=== PATIENT | female | born 1985 | race Caucasian/White ===

== ENCOUNTER 2016-09-02 13:55 | Emergency (ER) | payer OTHER ==
[2016-09-02 14:10] VITALS: BP 137/93
--- NOTE | 2016-09-02 14:11 | ER Document Report ---
ED Medical Screen (RME) - General Stated Complaint: ABDOMINAL PAIN Notes: 31 yo female c/o LLq pain since this AM. constant. + hx/o ovarian cyst. feels familar. hasnt had pain x 10 yrs. no n/v, no fever, no urinary or vaginal symptoms. pain localized, nonradiating. s/p partial hyst TRAVEL OUTSIDE OF THE [place] IN LAST 30 DAYS: No - Related Data Allergies/Adverse Reactions: Penicillins Allergy (Verified 09/02/16 14:07) Urticaria Past Medical History Past Surgical History: Reports: Hx Abdominal Surgery - tummy tuck, Hx Tonsillectomy
[2016-09-02 14:46] LABS: ABSOLUTE EOSINOPHILS # (AUTO) 0.1 10^3/uL (0.0-0.6); ABSOLUTE MONOCYTES (AUTO) 0.4 10^3/uL (0.1-1.4); ABSOLUTE NEUT (AUTO) 4.7 10^3/uL (1.7-8.2); BASOPHILS % (AUTO) 0.7 % (0-2); EOSINOPHILS % (AUTO) 1.7 % (0-6); HEMATOCRIT 40.9 % (36.0-47.0); HEMOGLOBIN 14.1 g/dL (12.0-15.5); HGB HCT DIFFERENCE 1.4; LYMPHOCYTES % (AUTO) 27.5 % (13-45); MEAN CORPUSCULAR HEMOGLOBIN 29.9 pg (27.0-33.4); MEAN CORPUSCULAR HGB CONC 34.5 g/dL (32.0-36.0); MEAN CORPUSCULAR VOLUME 87 fl (80-97); MONOCYTES % (AUTO) 5.5 % (3-13); RED BLOOD COUNT 4.72 10^6/uL (3.72-5.28); RED CELL DISTRIBUTION WIDTH 13.5 % (11.5-14.0); SEGMENTED NEUTROPHILS % (AUTO) 64.6 % (42-78); WHITE BLOOD COUNT 7.3 10^3/uL (4.0-10.5)
[2016-09-02 15:04] LABS: ALANINE AMINOTRANSFERASE 40 U/L (9-52); ALKALINE PHOSPHATASE 53 U/L (38-126); ANION GAP 14 (5-19); ASPARTATE AMINO TRANSFERASE 23 U/L (14-36); BILIRUBIN,TOTAL 0.6 mg/dL (0.2-1.3); BLOOD UREA NITROGEN 10 mg/dL (7-20); CALCIUM 9.4 mg/dL (8.4-10.2); CARBON DIOXIDE 28 mmol/L (22-30); CHLORIDE 102 mmol/L (98-107); CREATININE RESULT 0.69 mg/dL (0.52-1.25); GLUCOSE 88 mg/dL (75-110); POTASSIUM 4.1 mmol/L (3.6-5.0); SODIUM 144.3 mmol/L (137-145); TOTAL PROTEIN 7.5 g/dL (6.3-8.2)
[2016-09-02 15:38] LABS: APPEARANCE,URINE TURBID; BILIRUBIN,URINE NEGATIVE (NEGATIVE); GLUCOSE, URINE NEGATIVE (NEGATIVE); KETONES,URINE NEGATIVE (NEGATIVE); LEUKOCYTE ESTERASE,URINE NEGATIVE (NEGATIVE); NITRITE,URINE NEGATIVE (NEGATIVE); PROTEIN,URINE 30 mg/dL (NEGATIVE); URINE SPECIFIC GRAVITY 1.025; UROBILINOGEN,URINE NEGATIVE mg/dL (<2.0)
[2016-09-02] MEDS ORDERED: IBUPROFEN 600 MG TABLET PO ONE (16:15)
--- NOTE | 2016-09-02 16:21 | ER Document Report ---
ED GI/ - General Chief Complaint: Abdominal Pain Stated Complaint: ABDOMINAL PAIN Notes: The patient is a 31-year-old female, past medical history partial hysterectomy, ovarian cyst when she was a teenager, presents with 1 day of left lower quadrant abdominal/groin pain and pelvic pain. She feels like this is similar to her prior episodes of ovarian cysts. She is not taking anything to help. Pain is worse when she flexes her hip muscle. She denies vaginal discharge, hematuria, dysuria, flank pain, constipation, diarrhea or rash. TRAVEL OUTSIDE OF THE [place] IN LAST 30 DAYS: No - Related Data Allergies/Adverse Reactions: Penicillins Allergy (Verified 09/02/16 14:07) Urticaria Past Medical History - General Information source: Patient - Social History Smoking Status: Never Smoker Chew tobacco use (# tins/day): No Frequency of alcohol use: Social Drug Abuse: None Family History: Reviewed & Not Pertinent Patient has suicidal ideation: No Patient has homicidal ideation: No Past Surgical History: Reports: Hx Abdominal Surgery - tummy tuck, Hx Hysterectomy, Hx Tonsillectomy - Immunizations Hx Diphtheria, Pertussis, Tetanus Vaccination: No Review of Systems - Review of Systems Notes: REVIEW OF SYSTEMS: CONSTITUTIONAL: -fevers, -chills EENT: -eye pain, -difficulty swallowing, -nasal congestion CARDIOVASCULAR:-chest pain, -syncope. RESPIRATORY: -cough, -SOB GASTROINTESTINAL: +abdominal pain, - nausea, -vomiting, -diarrhea GENITOURINARY: -dysuria, -hematuria MUSCULOSKELETAL: -back pain, -neck pain, +left groin pain SKIN: -rash or skin lesions. HEMATOLOGIC: -easy bruising or bleeding. LYMPHATIC: -swollen, enlarged glands. NEUROLOGICAL: -altered mental status or loss of consciousness, -headache, - neurologic symptoms PSYCHIATRIC: -anxiety, -depression. ALL OTHER SYSTEMS REVIEWED AND NEGATIVE. Physical Exam - Vital signs Vitals: Temp Pulse Resp BP Pulse Ox 98.3 F 105 H 18 137/93 H 99 09/02/16 14:10 09/02/16 14:10 09/02/16 14:10 09/02/16 14:10 09/02/16 14:10 - Notes Notes: PHYSICAL EXAMINATION: GENERAL: Well-appearing, well-nourished and in no acute distress. HEAD: Atraumatic, normocephalic. EYES: Pupils equal round and reactive to light, extraocular movements intact, sclera anicteric, conjunctiva are normal. ENT: nares patent, oropharynx clear without exudates. Moist mucous membranes. NECK: Normal range of motion, supple without lymphadenopathy LUNGS: Breath sounds clear to auscultation bilaterally and equal. No wheezes rales or rhonchi. HEART: Regular rate and rhythm without murmurs ABDOMEN: LLQ abdominal pain. Soft, normoactive bowel sounds. No guarding, no rebound. No masses appreciated. : Nontender adnexa. No suprapubic tenderness. EXTREMITIES: Normal range of motion, no pitting or edema. No cyanosis. Painful hip flexion and mild tenderness over left hip flexors. NEUROLOGICAL: Cranial nerves grossly intact. Normal speech, normal gait. Normal sensory, motor, and reflex exams. PSYCH: Normal mood, normal affect. SKIN: Warm, Dry, normal turgor, no rashes or lesions noted. Course - Re-evaluation Re-evalutation: Patient's ultrasound is negative for ovarian torsion or ovarian cyst. Patient' s pain has improved after medications. Repeat abdominal exam is nontender. Suspect patient's pain may be related to left hip flexor muscle strain, especially when pain is worse with hip flexion. Instructed her about symptomatically treatment and following up with her primary care physician. - Vital Signs Vital signs: Temp Pulse Resp BP Pulse Ox 98.3 F 105 H 18 137/93 H 99 09/02/16 14:10 09/02/16 14:10 09/02/16 14:10 09/02/16 14:10 09/02/16 14:10 - Laboratory Result Diagrams: 09/02/16 14:30 09/02/16 14:30 Laboratory results interpreted by me: 09/02/16 14:30 Urine Protein 30 H Urine Ascorbic Acid 40 H - Diagnostic Test Radiology reviewed: Reports reviewed Radiology results interpreted by me: Pelvic ultrasound negative for any acute pathology. No ovarian cyst or torsion evidence. Discharge - Discharge Clinical Impression: Left lower quadrant abdominal pain of unknown etiology Inguinal strain Qualifiers: Encounter type: initial encounter Laterality: left Qualified Code(s): S76.212A - Strain of adductor muscle, fascia and tendon of left thigh, initial encounter Disposition: HOME, SELF-CARE Additional Instructions: Muscle Strain You have strained a muscle -- torn the fibers within the muscle. This often occurs with strenuous exertion, or during an injury that suddenly stretches the muscle. The seriousness of a strain varies. Some strains heal within days, others cause problems for months. X-rays cannot show a muscle strain. X-rays are taken only if symptoms suggest that a fracture could be present. The usual treatment of a muscle strain is rest and ice packs. Sometimes, a sling, splint, or crutches may be necessary to rest the muscle. The muscle can be used again once pain subsides. Severe strains require a special exercise and stretching program to prevent permanent stiffness and disability. Your doctor will advise you if this will be necessary. Call the doctor immediately if pain or swelling becomes severe, or if numbness or discoloration develop.
== END 2016-09-02 17:56 | disposition home or self-care (01) ==
LOC: ER 13:55
DX: S76.212A Strain of adductor muscle, fascia and tendon of left thigh, initial encounter (principal); X58.XXXA Exposure to other specified factors, initial encounter; R10.32 Left lower quadrant pain; R10.2 Pelvic and perineal pain; Z90.711 Acquired absence of uterus with remaining cervical stump; Z87.42 Personal history of other diseases of the female genital tract; Z88.0 Allergy status to penicillin
CPT/HCPCS: 36415; 76856; 80053; 81001; 81025; 85025; 93976; 99284

== ENCOUNTER 2016-10-21 17:28 | Emergency (ER) | payer OTHER ==
--- NOTE | 2016-10-21 17:58 | ER Document Report ---
ED Medical Screen (RME) - General Stated Complaint: COUGH, DIFFICULTY BREATHING Time seen by provider: 17:56 Mode of Arrival: Ambulatory Information source: Patient Notes: 31-year-old female presents to ED for cough and stuffy nose discomfort with sharp with breathing and coughing denies fevers. She had a hysterectomy in December 2015 I have greeted and performed a rapid initial assessment of this patient. A comprehensive ED assessment and evaluation of the patient, analysis of test results and completion of medical decision making process will be conducted by an additional ED providers. TRAVEL OUTSIDE OF THE [place] IN LAST 30 DAYS: No - Related Data Allergies/Adverse Reactions: Penicillins Allergy (Verified 09/02/16 14:07) Urticaria Past Medical History Past Surgical History: Reports: Hx Abdominal Surgery - tummy tuck, Hx Hysterectomy, Hx Tonsillectomy - Immunizations Hx Diphtheria, Pertussis, Tetanus Vaccination: No Physical Exam - Vital signs Vitals: Temp Pulse Resp BP Pulse Ox 99.7 F 93 20 136/85 H 100 10/21/16 17:54 10/21/16 17:54 10/21/16 17:54 10/21/16 17:54 10/21/16 17:54 Course - Vital Signs Vital signs: Temp Pulse Resp BP Pulse Ox 99.7 F 93 20 136/85 H 100 10/21/16 17:54 10/21/16 17:54 10/21/16 17:54 10/21/16 17:54 10/21/16 17:54
--- NOTE | 2016-10-21 18:48 | ER Document Report ---
ED Respiratory Problem - General Chief Complaint: Cold Symptoms Stated Complaint: COUGH, DIFFICULTY BREATHING Time seen by provider: 18:46 Mode of Arrival: Ambulatory TRAVEL OUTSIDE OF THE [place] IN LAST 30 DAYS: No - HPI Patient complains to provider of: Cough - pt with 2-3 day h/o cough productive of green sputum with low graade fever. - Related Data Allergies/Adverse Reactions: Penicillins Allergy (Verified 10/21/16 17:56) Urticaria Past Medical History - General Information source: Patient - Social History Smoking Status: Never Smoker Chew tobacco use (# tins/day): No Frequency of alcohol use: Occasional Drug Abuse: Marijuana Family History: Reviewed & Not Pertinent Patient has suicidal ideation: No Patient has homicidal ideation: No Renal/ Medical History: Denies: Hx Peritoneal Dialysis Past Surgical History: Reports: Hx Abdominal Surgery - tummy tuck, Hx Hysterectomy, Hx Tonsillectomy - Immunizations Hx Diphtheria, Pertussis, Tetanus Vaccination: No Review of Systems - Review of Systems Constitutional: See HPI, Fever EENT: No symptoms reported Cardiovascular: No symptoms reported Respiratory: See HPI, Cough Gastrointestinal: No symptoms reported Musculoskeletal: No symptoms reported -: Yes All other systems reviewed and negative Physical Exam - Vital signs Vitals: Temp Pulse Resp BP Pulse Ox 99.7 F 93 20 136/85 H 100 10/21/16 17:54 10/21/16 17:54 10/21/16 17:54 10/21/16 17:54 10/21/16 17:54 - General General appearance: Appears well In distress: None - HEENT Tympanic membrane: Normal Mucous membranes: Normal Pharynx: Normal Neck: Normal - Respiratory Respiratory status: No respiratory distress Chest status: Nontender Breath sounds: Normal Chest palpation: Normal - Cardiovascular Rhythm: Regular Heart sounds: Normal auscultation - Abdominal Inspection: Normal Distension: No distension Bowel sounds: Normal Tenderness: Nontender Course - Vital Signs Vital signs: Temp Pulse Resp BP Pulse Ox 99 F 88 16 128/74 H 100 10/21/16 19:05 10/21/16 19:05 10/21/16 19:05 10/21/16 19:05 10/21/16 19:05 Discharge - Discharge Clinical Impression: Bronchitis Condition: Stable Disposition: HOME, SELF-CARE Additional Instructions: rest, take meds as prescribed, return if worse Prescriptions: Azithromycin [Zithromax Tri-Mk] 500 mg PO DAILY #1 pkg Referrals: DONTRELL ANTHONY MD [ACTIVE STAFF] - Follow up as needed
[2016-10-21 19:33] VITALS: BP 128/74
== END 2016-10-21 19:15 | disposition home or self-care (01) ==
LOC: ER 17:28
DX: J40 Bronchitis, not specified as acute or chronic (principal); R05 Cough; R50.9 Fever, unspecified; Z88.0 Allergy status to penicillin
CPT/HCPCS: 71020; 99283

== ENCOUNTER → 2016-11-29 | Outpatient (CLI) | payer OTHER | LOC: RAD 10:56 | PROVIDERS: ATTEND Family Medicine | DX: E01.0 Iodine-deficiency related diffuse (endemic) goiter (principal) | CPT/HCPCS: 76536 ==

== ENCOUNTER → 2017-03-08 | Outpatient (CLI) | payer OTHER | LOC: OD 12:57 | PROVIDERS: ATTEND Nurse Practitioner Acute Care | DX: R30.0 Dysuria (principal) | CPT/HCPCS: 87086 ==

== ENCOUNTER 2020-06-24 09:58 | Emergency (ER) | payer OTHER ==
[2020-06-24 10:07] VITALS: BP 138/96
[2020-06-24] MEDS ORDERED: METHYLPREDNISOLONE INJ 125 MG/2 ML SDV IM ONE (10:12)
[2020-06-24] MEDS ORDERED: FAMOTIDINE 20 MG TABLET PO ONE (10:12)
[2020-06-24] MEDS ORDERED: DIPHENHYDRAMINE HCL 50 MG CAPSULE PO ONE (10:12)
--- NOTE | 2020-06-24 10:15 | ER Document Report ---
ED Medical Screen (RME) - General Chief Complaint: Allergic Reaction Stated Complaint: POSSIBLE ALLERGIC REACTION Time Seen by Provider: 06/24/20 10:07 Primary Care Provider: SHEREEN CHAMORRO NP [Primary Care Provider] - Follow up as needed TRAVEL OUTSIDE OF THE [place] IN LAST 30 DAYS: No - HPI Notes: 06/24/20 10:13 35-year-old female to the emergency department with complaints of a possible insect bite with large swelling around it that occurred last night. She states she was moving wood she is not sure if she got bit by a spider got stung by a bee. She states the area does not particularly itch but it feels tight and hot. She also relates that she feels like her tongue is a little thick and that she feels like her throat is a little tight. She states as a young child she had a reaction to a bee but she is never had to take epi or ever had a problem since then. She states that she has not been feeling short of breath or had nausea or vomiting. She states she does have a headache. She is not take anything prior to arrival. Brief medical screening exam to the left upper arm there is an evident stating from an insect with surrounding local reaction. The local reaction is likely about 10 to 15 cm in diameter. It is warm to touch and erythematous. Patient appears to have a clear airway. Tongue does not appear enlarged. There is no uvular swelling. Patient is tolerating oral secretions. She does not have any lip swelling. Her lungs are clear to auscultation. I performed a brief medical screening exam on the patient determined that the patient needs further evaluation and management by main side provider. I have placed initial orders to help expedite care. - Related Data Allergies/Adverse Reactions: Penicillins Allergy (Verified 06/24/20 10:05) Urticaria Past Medical History - Social History Chew tobacco use (# tins/day): No Drug Abuse: None Renal/ Medical History: Denies: Hx Peritoneal Dialysis Past Surgical History: Reports: Hx Abdominal Surgery - tummy tuck, Hx Hysterectomy, Hx Tonsillectomy - Immunizations Hx Diphtheria, Pertussis, Tetanus Vaccination: No Physical Exam - Vital signs Vitals: Temp Pulse Resp BP Pulse Ox 98.1 F 96 18 138/96 H 100 06/24/20 10:04 06/24/20 10:04 06/24/20 10:06/24/20 10:04 06/24/20 10:04 Course - Vital Signs Vital signs: Temp Pulse Resp BP Pulse Ox 98.1 F 96 18 138/96 H 100 06/24/20 10:06/24/20 10:04 06/24/20 10:04 06/24/20 10:04 06/24/20 10:04 Doctor's Discharge - Discharge Referrals: SHEREEN CHAMORRO NP [Primary Care Provider] - Follow up as needed
--- NOTE | 2020-06-24 10:33 | ER Document Report ---
ED Allergic Reaction - General Chief Complaint: Allergic Reaction Stated Complaint: POSSIBLE ALLERGIC REACTION Time Seen by Provider: 06/24/20 10:07 Primary Care Provider: SHEREEN CHAMORRO NP [Primary Care Provider] - Follow up as needed Notes: CHIEF COMPLAINT: Possible allergic reaction HPI: 35-year-old female presenting for possible allergic reaction today. Patient was working in a wood pile yesterday felt herself get bitten by something was not sure whether it was a spider or a bee. Patient states that she has had a reaction when she was a child to a bee sting. Patient states that she noticed increasing redness and swelling to the left forearm today. [place] like she was having some difficulty swallowing and speaking so came into the emergency department. ROS: See HPI - all other systems were reviewed and are otherwise negative Constitutional: no fever Eyes: no drainage, no blurred vision ENT: no runny nose, positive difficulty swallowing Cardiovascular: no chest pain Resp: no SOB, no cough GI: no vomiting, no diarrhea, no abdominal pain : no dysuria Integumentary: Positive rash Allergy: no hives Musculoskeletal: no extremity pain or swelling Neurological: no numbness/tingling, no weakness MEDICATIONS: I agree with the patient medications as charted by the RN. ALLERGIES: I agree with the allergies as charted by the RN. PAST MEDICAL HISTORY/PAST SURGICAL HISTORY: Reviewed and agree as charted by RN. SOCIAL HISTORY: Reviewed and agree as charted by RN. FAMILY HISTORY: No significant familial comorbid conditions directly related to patient complaint EXAM: Reviewed vital signs as charted by RN. CONSTITUTIONAL: Alert and oriented and responds appropriately to questions. Well-appearing; well-nourished HEAD: Normocephalic; atraumatic EYES: PERRL; Conjunctivae clear, sclerae non-icteric ENT: normal nose; no rhinorrhea; moist mucous membranes; pharynx without lesions noted, no uvula edema or deviation, no tonsillar hypertrophy, phonation normal. No angioedema NECK: Supple without meningismus; non-tender; no cervical lymphadenopathy, no masses. No stridor CARD: RRR; no murmurs, no clicks, no rubs, no gallops; symmetric distal pulses RESP: Normal chest excursion without splinting or tachypnea; breath sounds clear and equal bilaterally; no wheezes, no rhonchi, no rales, pulse oximetry 98% on room air not hypoxic ABD/GI: Normal bowel sounds; non-distended; soft, non-tender, no rebound, no guarding; no palpable organomegaly or masses. BACK: The back appears normal and is non-tender to palpation, there is no CVA tenderness EXT: Normal ROM in all joints; non-tender to palpation; no cyanosis, no effusions, no edema SKIN: Normal color for age and race; warm; dry; good turgor; raised erythematous area to the proximal volar left forearm measuring approximately 14 cm x 9 cm with a central bite site. No fluctuant areas no significant induration NEURO: Moves all extremities equally; Motor and sensory function intact PSYCH: The patient's mood and manner are appropriate. Grooming and personal hygiene are appropriate. MDM: 35-year-old female presenting for possible allergic reaction. Was given steroids and antihistamines in triage states she feels much better. No visible angioedema no stridor phonation is normal. There is a bite site on the right forearm with likely localized erythema. No generalized urticaria. Will hold patient for monitoring to ensure no recurrence of throat closing sensation and likely discharge patient with steroids antihistamines and a prescription for an EpiPen TRAVEL OUTSIDE OF THE [place] IN LAST 30 DAYS: No - Related Data Allergies/Adverse Reactions: Penicillins Allergy (Verified 06/24/20 10:05) Urticaria Past Medical History - Social History Smoking Status: Never Smoker Chew tobacco use (# tins/day): No Drug Abuse: None Family History: Reviewed & Not Pertinent Renal/ Medical History: Denies: Hx Peritoneal Dialysis Past Surgical History: Reports: Hx Abdominal Surgery - tummy tuck, Hx Hysterectomy, Hx Tonsillectomy - Immunizations Hx Diphtheria, Pertussis, Tetanus Vaccination: No Physical Exam - Vital signs Vitals: Temp Pulse Resp BP Pulse Ox 98.1 F 96 18 138/96 H 100 06/24/20 10:04 06/24/20 10:04 06/24/20 10:04 06/24/20 10:04 06/24/20 10:04 Course - Re-evaluation Re-evalutation: 06/24/20 12:39 Swelling and redness on the left forearm have significantly improved. No angioedema no stridor lungs are clear to auscultation patient wishes to go home. - Vital Signs Vital signs: Temp Pulse Resp BP Pulse Ox 98.1 F 96 18 138/96 H 100 06/24/20 10:04 06/24/20 10:04 06/24/20 10:04 06/24/20 10:04 06/24/20 10:04 Discharge - Discharge Clinical Impression: Allergic reaction Qualifiers: Encounter type: initial encounter Qualified Code(s): T78.40XA - Allergy, unspecified, initial encounter Condition: Stable Disposition: HOME, SELF-CARE Instructions: Acute Allergic Reaction ([facility]) Additional Instructions: 1. take the medications as prescribed 2. take Benadryl 25-50 mg three times daily for 3-4 days 3. follow up recheck with PCP for further evaluation and treatment, call for appt. 4. return for any shortness of breath or worsening rash or condition 5. Use the Epipen if needed for any shortness of breath, difficulty swallowing or worsening condition to buy time to get to an ER or call EMS for further treatment and evaluation Prescriptions: Prednisone [Deltasone 20 mg Tablet] 2 tab PO DAILY 5 Days #10 tablet Epinephrine [Epipen 2-Mk] 0.3 mg IM ONCE PRN #1 packet PRN Reason: Famotidine [Pepcid 20 mg Tablet] 20 mg PO BID #12 tablet Referrals: SHEREEN CHAMORRO NP [Primary Care Provider] - Follow up as needed
== END 2020-06-24 13:06 | disposition home or self-care (01) ==
LOC: ER 09:58
DX: T78.40XA Allergy, unspecified, initial encounter (principal); S51.852A Open bite of left forearm, initial encounter; S51.851A Open bite of right forearm, initial encounter; X58.XXXA Exposure to other specified factors, initial encounter; Z88.0 Allergy status to penicillin
CPT/HCPCS: 99284; 96372; J2930